=== PATIENT | female | born 1985 | race Caucasian/White ===

== ENCOUNTER → 2019-10-01 09:57 | Outpatient (CLI) | payer OTHER, SELFPAY ==
--- NOTE | ~2019-10-01 | US_ITS ---
EXAMINATION: US OB >= 14 weeks Fetus EXAM DATE: 10/01/2019 10:48 INDICATION: anatomy. Second trimester. TECHNIQUE: Pelvic obstetrical transabdominal sonogram was performed by a technologist. There are mu ltiple grayscale and Doppler images available for interpretation. There are no prior studies for albert diaz. FINDINGS: There is a single fetus identified in vertex presentation with a heart rate of 143 beats pe r minute. The placenta is located in the posterior position. There is no sonographic evidence of ret roplacental hemorrhage identified. The amniotic fluid index is 11.6 centimeters, which is normal. Mumtaz cental margin to internal cervical os distance is 2.9 cm. BIOMETRIC DATA: Biparietal diameter (BPD): 4.4cm ----------------> 19 weeks 1 day. Head circumference (HC): 16.9 cm ----------------> 19 weeks 4 days. Abdominal circumference (AC): 14.7 cm ----------> 20 weeks 0 days. Femur length (FL): 3.3 cm --------------------------> 20 weeks 1 day. These measurements are concordant. HC/AC ratio is 1.15 (The 5th -- 95th percentile range is 1.08-1.26. Estimated weight is 324 g +/- 49 g. This is the 44th percentile when the currently reported cl inical gestation age 20 weeks 0 days, clinical estimated date of delivery (KIM-OPE) 02/17 is used. Fet al estimated gestational age based on measurements from this exam is 19 weeks 5 days, with an estimat ed date of delivery (KIM-AUA) 02/19. ANATOMIC SURVEY: The following anatomy is identified and is sonographically normal in appearance: Cerebral ventricles Cerebellum Cisterna magna Nuchal fold CTL-spine Four-chamber heart Diaphragm Stomach Kidneys Bladder Three-vessel cord Cord insertion IMPRESSION: 1. Single fetus in vertex presentation with heart rate 143 beats per minute. 2. Estimated weight of 324 grams, 44th percentile using the currently reported clinical gestat ion age of 20 weeks 0 days, KIM(OPE) 02/17. 3. Normal amniotic fluid index and anatomy. Reviewed, dictated and finalized at location A. IMPRESSION: 1. Single fetus in vertex presentation with heart rate 143 beats per minute. 2. Estimated weight of 324 grams, 44th percentile using the currently re ported clinical gestation age of 20 weeks 0 days, KIM(OPE) 02/17. 3. Normal amniotic fluid index and anatomy.
== END ==
PROVIDERS: Visit Provider Obstetrics & Gynecology
DX: Z36.9 Encounter for antenatal screening, unspecified (principal); Z3A.20 20 weeks gestation of pregnancy
CPT/HCPCS: 76805

== ENCOUNTER 2021-09-10 00:53 | Day surgery (SDC) | payer OTHER, SELFPAY ==
[2021-08-02 08:59] VITALS: BMI 25.0
[2021-09-10 11:21] VITALS: BMI 25.0
[2021-09-10 11:23] VITALS: BP 135/81; PULSE 90; RESP 20; TEMP 36.3; O2SAT 100
[2021-09-10] MEDS: LACTATED RINGERS 1,000 ML 150 ML IV CONT (11:29)
--- NOTE | 2021-09-10 11:37 | P.PNAN_ITS ---
Anes - Initial Pre Proc Eval Procedure: Operation Date: 09/10/21 12:30 Proposed Procedures p Esophagogastroduodenoscopy - Maximo Mcmanus MD Date/Time: 09/10/21 11:37 Surgeon: Maximo Mcmanus MD Pre Op Diagnosis: dysphagia Patient Data Age: 35 Gender: F Height: 1.63 m Weight: 66 kg Last Vital Signs Temp 97.3 F L 09/10/21 11:23 Pulse 90 09/10/21 11:23 Resp 20 09/10/21 11:23 BP 135/81 09/10/21 11:23 Pulse Ox 100 09/10/21 11:23 Allergies Allergy/AdvReac Type Severity Reaction Status Date / Time No Known Allergies Allergy Verified 09/10/21 11:18 Home Medications Medication Instructions Recorded Confirmed Type bupropion HCl 300 mg 24 hr tablet, 300 mg PO QAM 06/27/21 08/02/21 History extended release norgestimate 0.25 mg-ethinyl 1 tablet PO DAILY 06/27/21 08/02/21 History estradiol 35 mcg tablet pantoprazole 40 mg tablet,delayed 40 mg PO QAM 30 Days #30 tablet 07/02/21 08/02/21 Rx release Patient hx anesthesia problems: none Family hx anesthesia problems: none Results Review: All pre-operative results and documents have been reviewed as part of the pre-operative evaluation. [facility] Past Medical History Medical History Allergies Anxiety Family History Family History Father Hypertension Mother Depression Grandparent Diabetes mellitus Social History Social History Smoking status: Never smoker Alcohol intake: current Alcohol use details: 1-2 per month Substance use: never Living arrangements: with family Spiritual care concerns: No Anes - Eval Final PreProcedure Day of Procedure 09/10/21 11:37 Patient weight: normal Heart: regular rate and rhythm Lungs: clear to auscultation Airway: Mallampati scale class II Neurological: alert and oriented Last oral intake: >/= 8 hours ASA classification: II Emergent: no Anesthetic plan: proceed Anesthesia type and monitoring: general GIVS and standard monitoring Results Review: All pre-operative results and documents have been reviewed as part of the pre-operative evaluation. Informed Consent: The patient's anesthetic plan and its attendant risks and benefits were discussed with the patient/family/POA. Questions were solicited and answers provided to the satisfaction of the patient/family/POA.
--- NOTE | 2021-09-10 11:39 | P.CONGI_ITS ---
Assessment and Plan Assessment and plan (1) Dysphagia: Code(s): R13.10 - Dysphagia, unspecified Status: Acute Assessment and Plan: Patient with difficulty swallowing solid pieces of food suspicious for narrow ing of the distal esophagus. Plan is for EGD to assess more thoroughly possible eat dilatation will be performed. (2) GERD (gastroesophageal reflux disease): Code(s): K21.9 - Gastro-esophageal reflux disease without esophagitis Status: Acute Assessment and Plan: Patient is suspected as having acid reflux she has substernal discomfort in the chest that is improved over the last several months taking omeprazole 20mg p.o. daily. Further recommendations will be given after endoscopy to be performed today. GI Consult Note Consult date/time: 09/10/21 11:39 HPI: Ada Weiner is a 35 year old female Presents for EGD. Patient has had difficulty swallowing Sandwiches and solid pieces of food off and on for several years. This is intensified over the last 6 months. Patient has had vague chest discomfort for which she empirically she has been placed on omeprazole with improved discomfort. She states she has no difficulty swallowing liquids or water. She has had no bleeding. Her weight has remained stable. She has had increasing difficulty swallowing food which catches in the mid substernal chest . she is referred today for EGD to evaluate more thoroughly. Review of Systems Review of Systems: All systems reviewed & are unremarkable except as noted in HPI and below PMFSH Past Medical History Medical History Allergies Anxiety Family History Family History Father Hypertension Mother Depression Grandparent Diabetes mellitus Social History Social History Smoking status: Never smoker Alcohol intake: current Alcohol use details: 1-2 per month Substance use: never Living arrangements: with family Spiritual care concerns: No Meds Home Medications and Allergies Home Medications Medication Instructions Recorded Confirmed Type bupropion HCl 300 mg 24 hr tablet, 300 mg PO QAM 06/27/21 08/02/21 History extended release norgestimate 0.25 mg-ethinyl 1 tablet PO DAILY 06/27/21 08/02/21 History estradiol 35 mcg tablet pantoprazole 40 mg tablet,delayed 40 mg PO QAM 30 Days #30 tablet 07/02/21 08/02/21 Rx release Allergies Allergy/AdvReac Type Severity Reaction Status Date / Time No Known Allergies Allergy Verified 09/10/21 11:18 Vital Signs Vital Signs - 24 hr 09/10/21 11:23 Temperature 97.3 F L Pulse Rate 90 Respiratory Rate 20 Blood Pressure 135/81 Pulse Oximetry 100 Exam 2 Narrative: Physical exam reveals patient to be alert. Vital signs stable. HEENT exam is unremarkable. Patient is anicteric. Lungs are clear to auscultation and percussion. Heart is without murmur or extra sounds. Abdominal exam bowel sounds are present soft nontender with no organomegaly.
[2021-09-10 11:58] VITALS: BP 120/76; PULSE 66; RESP 18; O2SAT 100
[2021-09-10 12:08] VITALS: BP 114/75; PULSE 75; RESP 23; O2SAT 100
[2021-09-10 12:18] VITALS: BP 120/82; PULSE 74; RESP 20; O2SAT 100
== END 2021-09-10 12:30 | disposition home or self-care (01) ==
PROVIDERS: PCP Internal Medicine; Visit Provider Internal Medicine Gastroenterology
PROC: 0DJ08ZZ Inspection of Upper Intestinal Tract, Via Natural or Artificial Opening Endoscopic (ICD-10-PCS; CPT 43235; principal; 2021-09-10 12:30)
DX: R13.19 Other dysphagia (principal); Q39.4 Esophageal web; K21.9 Gastro-esophageal reflux disease without esophagitis; F41.9 Anxiety disorder, unspecified
CPT/HCPCS: 43450; 43235; J2704; J7120

== ENCOUNTER 2023-07-15 01:24 | Day surgery (SDC) | payer BC, SELFPAY ==
[2023-07-08 09:25] VITALS: BMI 24.0
--- NOTE | 2023-07-08 09:38 | PC.NURSE ---
Report to the Outpatient Waiting Room, entrance under the green pavilion located off [facility], at time _0600 on date __07/15/23 . Planned Procedure Time: _0730 . Time changes happen often and if your time is changed the preop area will call you the afternoon before. - You and your visitor will be asked to self-screen and do not enter if you have any COVID symptoms. - A mask is optional within the hospital at this time. Patients may have clear liquids (water, carbonated beverages, clear teas, apple juice) until *8 hours prior to surgery with a maximum of 20 ounces. - No food from midnight until time of surgery Take the following medications with a SIP of water the morning of surgery: __Wellbutrin DO NOT STOP ANY OF YOUR OTHER PRESCRIPTION MEDICATIONS PRIOR TO SURGERY ?EXCEPT THE FOLLOWING Medications to discontinue per physician __Vitamins and supplements 3 days prior, Patient to call office about continuing control___ Please no make-up, nail english, hairspray, perfume, deodorant, or body powder the day of surgery. No jewelry (including any body piercings) or valuables the day of surgery, leave them at home. Please take a shower or bath the night before, or the morning of, surgery with an antibacterial soap. Wear comfortable, loose fitting clothing. Children are encouraged to wear pajamas. - Jewelry must be removed prior to entering the operating room. Rings and piercings that are not removed may be cut off. - The hospital will not accept responsibility for valuables. - Please leave all valuables, including medications, at home the day of surgery. If you are going home after surgery, a licensed peg driver must drive you home. - NO public transportation without another adult if you receive anesthesia. - We recommend that an adult stay with you for 24 hours following discharge. - We also recommend that you do not drive, make important decision, drink alcoholic beverages, or take any drugs that were not prescribed by your health care provider for at least 24 hours after your discharge time. Follow any additional instructions given to you from your surgeon. If you or anyone in your household have experienced Covid symptoms in the past week, please notify your surgeon or the nurse liaison at the phone number below for possible testing. Telephone instructions given to __ANNA ZABALA____and asked if any additional questions and then verbalized understanding. Patient advised to call surgeon office or pre surgery nurse liaison [phone] if any additional questions.
--- NOTE | 2023-07-14 14:26 | WPDANESEPPF ---
Anes - Initial Pre Proc Eval Procedure: Operation Date: 07/15/23 07:30 Proposed Procedures p Bilateral Breast Reduction - Leila Richmond MD Date/Time: 07/14/23 14:26 Surgeon: Leila Richmond MD Pre Op Diagnosis: breast hypertrophy Patient Data Age: 37 Gender: F Height: 1.64 m Weight: 64.41 kg Allergies Allergy/AdvReac Type Severity Reaction Status Date / Time No Known Allergies Allergy Verified 07/15/23 06:21 Home Medications Medication Instructions Recorded Confirmed Type norgestimate 0.25 mg-ethinyl 1 tablet PO DAILY 06/27/21 07/15/23 History estradiol 35 mcg tablet bupropion HCl 300 mg 24 hr tablet, 300 mg PO QAM #90 tabs 01/22/23 07/15/23 Rx extended release cholecalciferol (vitamin D3) 25 25 mcg PO DAILY 07/08/23 07/15/23 History mcg (1,000 unit) capsule cyanocobalamin (vitamin B-12) 1,000 mcg PO DAILY 07/08/23 07/15/23 History 1,000 mcg tablet (Vitamin B-12) pantoprazole 40 mg tablet,delayed 40 mg PO DAILY PRN Indigestion 07/08/23 07/15/23 History release cephalexin 500 mg capsule 500 mg PO Q8H #21 caps 07/15/23 Rx oxycodone-acetaminophen 5 mg-325 1 tablet PO Q6H PRN pain #12 tabs 07/15/23 Rx mg tablet (Percocet) Patient hx anesthesia problems: none Family hx anesthesia problems: none Results Review: All pre-operative results and documents have been reviewed as part of the pre-operative evaluation. [facility] Past Medical History Medical History (Updated 07/15/23 @ 07:14 by Phillip Douglas DO) Allergies Anxiety GERD (gastroesophageal reflux disease) Motion sickness Surgical History Surgical History (Updated 01/22/23 @ 14:30 by Mary Chandler PA-C) History of 2020 History of tonsillectomy Family History Family History Father Hypertension Mother Depression Grandparent Diabetes mellitus Social History Social History (Updated 01/22/23 @ 13:42 by Ely Glez) Years smoked: 2 Smoking status: Former smoker Tobacco type: cigarettes Second hand tobacco smoke exposure: No Alcohol intake: current Alcohol use details: RARE Substance use: never Substance use type: does not use Lack of Transportation: No Lack of Food: Never True Current Housing: I Have Housing Concerned About Future Housing: No Difficulty Paying Gas/Electric Bills: No Difficulty Paying for Meds: No Currently Unemployed: No Education: Bachelor's Degree Difficulty w/ Childcare or Family Care: No Living arrangements: with family Occupation/Education: occupation Gender identity (if verbalized by the patient): Female Sexual Orientation (if Verbalized by the Patient): Straight or Heterosexual Spiritual care concerns: No Anes - Eval Final PreProcedure Day of Procedure 07/14/23 14:26 Patient weight: normal Heart: regular rate and rhythm Lungs: clear to auscultation Airway: Mallampati scale class II Neurological: alert and oriented Last oral intake: >/= 8 hours ASA classification: II Emergent: no Anesthetic plan: proceed Anesthesia type and monitoring: general ETT and standard monitoring Results Review: All pre-operative results and documents have been reviewed as part of the pre-operative evaluation. Informed Consent: The patient's anesthetic plan and its attendant risks and benefits were discussed with the patient/family/POA. Questions were solicited and answers provided to the satisfaction of the patient/family/POA.
[2023-07-15] VITALS (11 sets, daily range): BP systolic 90–129; BP diastolic 62–95; PULSE 70–104; RESP 12–18; TEMP 36.1–36.9; O2SAT 96–100
[2023-07-15] MEDS: LACTATED RINGERS 1,000 ML 30 ML IV CONT ×2 (06:35→09:21)
--- NOTE | 2023-07-15 06:54 | PM.HPGS ---
History of Present Illness History of Present Illness Chief complaint: breast hypertrophy Narrative: Patient seen and examined in pre-operative holding area. No interval change in medical history or symptoms. Patient remembers previous discussion of benefits and alternatives to procedure. Continues to desire to proceed with bilateral breast reduction. I reviewed the risks including but not limited to bleeding ,infection, asymmetry, undesireable cosmetic appearance, partial/total skin/nipple loss, no change or worsening of symptoms, change in sensation. I discussed the possible use of assistants and their level of participation in the case. Patient stated understanding and signed the consent form wishing to proceed Review of Systems Review of Systems: All systems reviewed & are unremarkable except as noted in HPI and below PMFSH Past Medical History Medical History (Updated 03/17/23 @ 09:52 by Leila Richmond MD) Allergies Anxiety GERD (gastroesophageal reflux disease) Surgical History Surgical History (Updated 01/22/23 @ 14:30 by Mary Chandler PA-C) History of 2020 History of tonsillectomy Family History Family History Father Hypertension Mother Depression Grandparent Diabetes mellitus Social History Social History (Updated 01/22/23 @ 13:42 by Ely Glez) Years smoked: 2 Smoking status: Former smoker Tobacco type: cigarettes Second hand tobacco smoke exposure: No Alcohol intake: current Alcohol use details: RARE Substance use: never Substance use type: does not use Lack of Transportation: No Lack of Food: Never True Current Housing: I Have Housing Concerned About Future Housing: No Difficulty Paying Gas/Electric Bills: No Difficulty Paying for Meds: No Currently Unemployed: No Education: Bachelor's Degree Difficulty w/ Childcare or Family Care: No Living arrangements: with family Occupation/Education: occupation Gender identity (if verbalized by the patient): Female Sexual Orientation (if Verbalized by the Patient): Straight or Heterosexual Spiritual care concerns: No Meds Home Medications and Allergies Home Medications Medication Instructions Recorded Confirmed Type norgestimate 0.25 mg-ethinyl 1 tablet PO DAILY 06/27/21 07/15/23 History estradiol 35 mcg tablet bupropion HCl 300 mg 24 hr tablet, 300 mg PO QAM #90 tabs 01/22/23 07/15/23 Rx extended release cholecalciferol (vitamin D3) 25 25 mcg PO DAILY 07/08/23 07/15/23 History mcg (1,000 unit) capsule cyanocobalamin (vitamin B-12) 1,000 mcg PO DAILY 07/08/23 07/15/23 History 1,000 mcg tablet (Vitamin B-12) pantoprazole 40 mg tablet,delayed 40 mg PO DAILY PRN Indigestion 07/08/23 07/15/23 History release cephalexin 500 mg capsule 500 mg PO Q8H #21 caps 07/15/23 Rx oxycodone-acetaminophen 5 mg-325 1 tablet PO Q6H PRN pain #12 tabs 07/15/23 Rx mg tablet (Percocet) Allergies Allergy/AdvReac Type Severity Reaction Status Date / Time No Known Allergies Allergy Verified 07/15/23 06:21 Vital Signs Vital Signs - 24 hr 07/15/23 06:17 Temperature 36.9 C Pulse Rate 85 Respiratory Rate 16 Blood Pressure 116/80 Pulse Oximetry 100 Oxygen Delivery Room Air Exam Narrative: unchnaged from previous Assessment and Plan Assessment and plan (1) Breast hypertrophy: Code(s): N62 - Hypertrophy of breast Status: Acute Assessment and Plan: as above
--- NOTE | 2023-07-15 06:55 | P.OP_ITS ---
Procedure Note - Detailed Date of Procedure 07/15/23 Pre-op Diagnosis breast hypertrophy Post-op Diagnosis Same Procedure Performed b/l breast reduction Surgeon Leila Richmond MD Histological Illustrator Oliver Last PA-C Anesthesia General Description of Procedure INFORMED CONSENT: The patient was seen and examined and marked in the pre-op area.? The patient signed the consent form. PROCEDURE IN DETAIL:The patient taken back to OR on the stretcher in supine position. Time out performed with anesthesia, surgeon and staff agreeing on patient's name site and surgery to be performed SCDs were placed on the lower extremities and inflated. After general anesthesia was administered the breasts were prepped and draped in sterile fashion. I took my attention 1st to the right breast where I used a saline moistened lap pad and Antonia clamp to create a right breast tourniquet. I used a 30 mm nipple Sizer to circumscribe the nipple-areolar complex. I made this incision with a 15 blade scalpel. Proceed with de epithelializing a 7 cm wide inferior pedicle. I made my other skin incisions removed the breast tourniquet. I used Bovie cautery to then complete the incisions and elevate skin flaps and Ron's plane to expose the breast tissue down to the chest wall. I proceeded with resection of 419 g of right breast tissue. I irrigated with normal saline and hemostasis with Bovie cautery. I plicated the pedicle 2-0 Vicryl suture. Any further resection would have left the patient hypermastia again would have possibly compromised the vascular pedicle to the nipple. I proceeded with closing the T junction with 2-0 Prolene suture followed by 3-0 Vicryl for dermis the nipple was brought out 5 cm above the inframammary fold and secured with 3-0 Vicryl suture. 4-0 Monocryl was used for subcuticular closure. A my attention the left breast where the same procedure was performed using the saline moistened lap pad and Antonia clamps greater breast tourniquet. De- epithelialized a 7 cm wide pedicle after using the 38 mm nipple Sizer. After making the other skin incisions since a used Bovie cautery to elevate my superior skin flaps and compress plane down to the level of the chest wall this was breast tissue. I proceeded with resection of 435 g of left breast tissue. Irrigated with normal saline hemostasis with Bovie cautery. I plicated the pedicle 2-0 Vicryl suture. There was reasonable size shape and symmetry to the breasts. I proceeded with closing the T junction with 2-0 Prolene suture 3-0 Vicryl for dermis. The nipple again was brought out at 5 cm above the inframammary fold most prominent portion of breast the breast midline and secured with 3-0 Vicryl suture. Subcuticular closure was performed with 4-0 Monocryl suture. The nipples appeared viable with good cap refill. I injected 20 cc of 1% lidocaine with epinephrine and 0.5% Marcaine plain along the inframammary fold anterior axial line for each breast. A dressing of Mastisol Steri-Strips 4 x 4 ABDs and a breast binder was then applied. The patient was then awaken from anesthesia and transferred to the recovery room in stable condition.? Complications - none EBL- 40cc Disposition - home in stable conditions Oliver Last PA-C was essential for positioning, retraction, hemostasis, in strumentation, closure and dressing placement [facility] [place] Billing Surgery - Charge Forward: Surgery Billing ([id number] and [id number] same for oliver adding modifier)
[2023-07-15] MEDS: SCOPOLAMINE 1 MG PATCH 1 PATCH TRANSDERM (07:02)
[2023-07-15] MEDS: ceFAZolin 2 GM/D5W 50 ML 2 GM/50 ML BAG IVPB (07:24)
[2023-07-15] MEDS: LIDO 1%/EPINEPHRINE 1:100,000 20 ML VIAL 10 ML INFILTRATE (07:52)
[2023-07-15] MEDS: BUPivacaine HCL 0.5% PF 30 ML VIAL INFILTRATE (07:53)
[2023-07-15] MEDS: fentaNYL CITRATE INJ (*CRX) 100 MCG/2 ML VIAL 25 MCG IV PUSH ×8 (09:30→10:25)
[2023-07-15] MEDS: diphenhydrAMINE HCl INJ 50 MG/ML VIAL 25 MG IV PUSH ×2 (10:11→11:13)
[2023-07-15] MEDS: ONDANSETRON INJ 4 MG/2 ML VIAL IV PUSH (11:11)
[2023-07-15] MEDS: oxyCODONE HCL (*CRX) 5 MG TAB IR PO (11:28)
== END 2023-07-15 12:19 | disposition home or self-care (01) ==
PROVIDERS: PCP Physician Assistant Medical; Visit Provider Plastic Surgery
PROC: 0HBV0ZZ Excision of Bilateral Breast, Open Approach (ICD-10-PCS; CPT 19318; principal; 2023-07-15 07:30)
DX: N62 Hypertrophy of breast (principal); Z87.891 Personal history of nicotine dependence
CPT/HCPCS: 19318; 88305; A9270; J0690; J1100; J1170; J1200; J2250; J2371; J2405; J2704; J3010; J7120